=== PATIENT | male | born 1980 | race Caucasian/White ===

== ENCOUNTER 2022-06-09 12:07 | Emergency (ER) | payer OTHER, SELFPAY ==
--- NOTE | ~2022-06-09 | XR_ITS ---
AP and oblique views of the right ribs, and PA and lateral chest radiograph Clinical History: Pain Findings: No rib fracture is seen. Osseous alignment is anatomic. Calcified left basilar granuloma no marvel. Lungs are otherwise clear, without focal consolidation or pleural effusion. Cardiomediastinal co ntour is within normal limits. Soft tissues are unremarkable. Impression: No rib fracture is seen. Reviewed, dictated and finalized at location . Impression: No rib fracture is seen.
--- NOTE | ~2022-06-09 | XR_ITS ---
AP view of the pelvis and AP and lateral views of the right hip Clinical history: Pain Findings: No acute fracture or dislocation is seen. Osseous alignment is anatomic. Bilateral hip and SI joint spaces are preserved. Soft tissues are unremarkable. Impression: No significant abnormality is seen. Reviewed, dictated and finalized at [facility]. Impression: No significant abnormality is seen.
[2022-06-09 12:30] VITALS: BP 116/90; PULSE 71; RESP 18; TEMP 36.5; O2SAT 98
--- NOTE | 2022-06-09 13:01 | ED.FALL ---
HPI - Fall General Chief Complaint: Fall Stated Complaint: fall down 4 steps last night Time Seen by Provider: 06/09/22 12:52 History of Present Illness HPI Narrative: Patient is a 41-year-old male here for evaluation of right rib pain after a fall last evening. Patient states that he was walking down his steps in his usual state of health when he tripped on an object and fell landing on his right side. Since the fall he has had pain in his posterior right ribs, worse with deep breaths, in addition to right hip pain. Patient attempted ibuprofen without relief of symptoms. He denies any chest pain, shortness of breath, abdominal pain, head injury or loss of consciousness. He does not take blood thinners. Related Data Allergies Allergy/AdvReac Type Severity Reaction Status Date / Time No Known Allergies Verified 06/09/22 13:09 Review of Systems Review of Systems: Gen.: Denies fevers or chills Eyes: Denies eye pain or visual change ENT: Denies congestion Respiratory: Denies shortness of breath or cough CV: Denies chest pain or palpitations GI: Denies abdominal pain nausea, emesis or diarrhea denies burning, urgency, frequency or hematuria Musculoskeletal: Reports pain in the right ribs and right hip Neuro: Denies numbness, tingling, weakness or focal weakness Skin: Denies rash Except as documented, all other systems reviewed and negative Exam Narrative: APPEARANCE: Well appearing, no pain in distress, well-nourished. Head: Normocephalic and atraumatic. EYES: PERRLA/EOMI, conjunctivae clear NOSE: No nasal drainage EARS: External ear normal in appearance THROAT: Oropharynx is clear. Mucous membranes are moist. NECK: Supple. No adenopathy, no masses. RESPIRATORY: Airway patent, respirations nonlabored. Clear to auscultation bilaterally, no rales, rhonchi, wheezing. CARDIOVASCULAR: No bruising along the chest wall. Regular rate and rhythm without murmurs, rubs, or gallops. ABDOMINAL: Patient has no bruising along the abdomen. normoactive bowel sounds. Soft, nontender, nondistended. No rebound tenderness or guarding. MUSCULOSKELETAL: Patient has tenderness to palpation along the right scapula, right posterior ribs 10-12, and to the right hip. There is no midline tenderness to the C, T or L-spine. NEURO: Normal speech. No focal neurologic deficits. SKIN: Skin is warm and dry. No rashes. PSYCHIATRIC: Normal affect/mood. Course Vital Signs Vital signs: Vital Signs Temperature 97.7 F 06/09/22 12:30 Pulse Rate 71 06/09/22 12:30 Respiratory Rate 18 06/09/22 12:30 Blood Pressure 116/90 06/09/22 12:30 Pulse Oximetry 98 06/09/22 12:30 Oxygen Delivery Room Air 06/09/22 12:30 Temperature 97.7 F 06/09/22 12:30 Pulse Rate 71 06/09/22 12:30 Respiratory Rate 18 06/09/22 12:30 Blood Pressure 116/90 06/09/22 12:30 Pulse Oximetry 98 06/09/22 12:30 Oxygen Delivery Room Air 06/09/22 12:30 MDM - Fall MDM Narrative Medical decision making narrative: 41-year-old male here for evaluation of right rib pain over the past day after a fall down 1 step without head injury or LOC. He is nontoxic in appearance and has normal vital signs. He does have tenderness to palpation along the posterior ribs 10 through 12 and tenderness in his hip. Plain films of the chest, hip, pelvis and rib studies are negative. Patient was given pain medicine and incentive spirometer in the ED with improvement of his pain. No blood thinner use or signs of significant intra-abdominal trauma. Will be discharged home with muscle relaxants, likely contusion. Return precautions were discussed and he voiced understanding. Discharge Plan Discharge Clinical Impression: Painful rib Patient Disposition: Home, Self-Care Condition: Stable Instructions: Antibiotic Form, Hip Pain (ED) Additional Instructions: There are no fractures or acute abnormalities on the image of your chest, ribs or hip. You likely have a sm
[2022-06-09] MEDS: methocarbamoL 500 MG TABLET PO (13:09)
[2022-06-09] MEDS: ACETAMINOPHEN 500 MG TABLET 1000 MG PO (13:09)
[2022-06-09] MEDS: LIDOCAINE 5% PATCH 1 PATCH TRANSDERM (13:10)
== END 2022-06-09 14:16 | disposition home or self-care (01) ==
PROVIDERS: Emergency Provider Physician Assistant
DX: R07.81 Pleurodynia (principal); W10.9XXA Fall (on) (from) unspecified stairs and steps, initial encounter
CPT/HCPCS: 71046; 71100; 73502; 99284; A9270